=== PATIENT | male | born 2000 | race Caucasian/White ===

== ENCOUNTER 2021-12-20 15:09 | Emergency (ER) | payer MEDICAID ==
[~2021-12-20] VITALS: Ht 160 cm; Wt 70.0 kg
[2021-12-20] MEDS ORDERED: SODIUM CHLORIDE 0.9% 1,000 ML IV ONE (15:30)
[2021-12-20 15:54] LABS: BASOPHILS % 0.4 % (0.0-2.0); EOSINOPHILS % 0.2 % (0.0-5.0); HEMATOCRIT. 48.4 % (42.0-52.0); HEMOGLOBIN. 16.9 g/dL (14.0-18.0); MEAN CORPUSCULAR HEMOGLOBIN 30.7 pg (28.0-32.0); MEAN CORPUSCULAR VOLUME 87.8 fL (80.0-94.0); MEAN PLATELET VOLUME 8.5 fl (7.4-10.4); MONOCYTES % 6.6 % (2.0-8.0); NEUTROPHILS % 61.8 % (40.0-76.0); PLATELET 237 x1000/uL (130-400); RED BLOOD CELL COUNT 5.51 mill/uL (4.7-6.1); RED CELL DISTRIBUTION WIDTH 13.9 % (11.6-14.6)
[2021-12-20 16:05] LABS: CHLORIDE 105 mEq/L (98-107)
[2021-12-20 16:41] LABS: T4 FREE 1.03 ng/dL (0.76-1.46)
[2021-12-20 16:56] LABS: ETHANOL BLOOD 88 mg/dL; PHOSPHORUS 3.3 mg/dL (2.5-4.9)
[2021-12-20 17:09] LABS: CLARITY URINE CLEAR (CLEAR); COLOR URINE YELLOW (YELLOW); KETONES URINE TRACE (NEGATIVE); LEUKOCYTE ESTERASE URINE NEGATIVE (NEGATIVE); NITRITE URINE NEGATIVE (NEGATIVE); OCCULT BLOOD URINE NEGATIVE (NEGATIVE); PROTEIN URINE TRACE (NEGATIVE); SPECIFIC GRAVITY URINE 1.033 (1.005-1.030); UROBILINOGEN URINE 0.2 E.U./dL (0.2-1.0)
[2021-12-20] MEDS ORDERED: MAGNESIUM OXIDE 400MG TABLET PO SCH (17:15)
[2021-12-20] MEDS ORDERED: POTASSIUM CHLORIDE 10MEQ TABLET SR PO SCH (17:15)
[2021-12-20 17:28] LABS: *AMPHETAMINES SCREEN URINE NEGATIVE (NEGATIVE); *BARBITURATES SCREEN URINE NEGATIVE (NEGATIVE); *BENZODIAZEPINES SCREEN URINE NEGATIVE (NEGATIVE); *COCAINE SCREEN URINE NEGATIVE (NEGATIVE); CANNABINOID URINE SCREEN PRESUMTIVE POSITIVE (NEGATIVE); METHADONE URINE SCREEN NEGATIVE (NEGATIVE); OPIATES URINE SCREEN NEGATIVE (NEGATIVE); PHENCYCLIDINE URINE SCREEN NEGATIVE (NEGATIVE)
[2021-12-20 18:12] VITALS: BP 127/71
== END 2021-12-20 18:14 | disposition home or self-care (01) ==
LOC: ER 15:09
DX: F10.10 Alcohol abuse, uncomplicated (principal); R00.2 Palpitations; F12.10 Cannabis abuse, uncomplicated; E11.9 Type 2 diabetes mellitus without complications; Y90.4 Blood alcohol level of 80-99 mg/100 ml
CPT/HCPCS: 36415; 71045; 80053; 80305; 80320; 81003; 83690; 83735; 84100; 84439; 84443; 85025; 93005; 96360; 99285; J7030; G0480

== ENCOUNTER 2021-12-29 18:55 | Emergency (ER) | payer MEDICAID ==
[~2021-12-29] VITALS: Ht 170.2 cm; Wt 68.0 kg
[2021-12-29] MEDS ORDERED: LORAZEPAM 2MG/ML CPJ IV ONE (20:15)
[2021-12-29] MEDS ORDERED: SODIUM CHLORIDE 0.9% 1,000 ML IV ONE (20:15)
[2021-12-29 21:44] LABS: BASOPHILS % 0.3 % (0.0-2.0); EOSINOPHILS % 0.2 % (0.0-5.0); LYMPHOCYTES % 15.9 % (20.0-50.0); MEAN CORPUSCULAR HEMOGLOBIN 31.1 pg (28.0-32.0); MEAN CORPUSCULAR VOLUME 87.1 fL (80.0-94.0); MEAN PLATELET VOLUME 8.9 fl (7.4-10.4); MONOCYTES % 7.5 % (2.0-8.0); NEUTROPHILS % 76.1 % (40.0-76.0); PLATELET 211 x1000/uL (130-400); RED BLOOD CELL COUNT 5.16 mill/uL (4.7-6.1); RED CELL DISTRIBUTION WIDTH 13.4 % (11.6-14.6)
[2021-12-29 21:48] LABS: CHLORIDE 103 mEq/L (98-107)
[2021-12-29 23:00] VITALS: BP 137/89
== END 2021-12-29 23:13 | disposition home or self-care (01) ==
LOC: ER 18:55
DX: R00.2 Palpitations (principal); E11.9 Type 2 diabetes mellitus without complications; F41.9 Anxiety disorder, unspecified
CPT/HCPCS: 36415; 71045; 80053; 84484; 85025; 93005; 96361; 96374; 99285; J2060; J7030; Z7610

== ENCOUNTER 2022-05-25 00:44 | Emergency (ER) | payer MEDICAID ==
[~2022-05-25] VITALS: Ht 167.6 cm; Wt 85.0 kg
[2022-05-25 00:52] VITALS: BP 149/90
== END 2022-05-25 05:15 | disposition home or self-care (01) ==
LOC: ER 00:44
DX: R00.2 Palpitations (principal); E11.9 Type 2 diabetes mellitus without complications; F12.10 Cannabis abuse, uncomplicated
CPT/HCPCS: 93005; 99283

== ENCOUNTER 2022-08-07 21:26 | Emergency (ER) | payer MEDICAID ==
[~2022-08-07] VITALS: Ht 170.2 cm; Wt 78.0 kg
[2022-08-07 21:34] VITALS: BP 164/95; PULSE 104; RESP 22; TEMP 98.2; O2SAT 100
[2022-08-07 21:55] LABS: BASOPHILS % 0.4 % (0.0-2.0); EOSINOPHILS % 0.3 % (0.0-5.0); HEMATOCRIT. 50.4 % (42.0-52.0); HEMOGLOBIN. 17.8 g/dL (14.0-18.0); LYMPHOCYTES % 36.9 % (20.0-50.0); MEAN CORPUSCULAR HEMOGLOBIN 31.3 pg (28.0-32.0); MEAN CORPUSCULAR VOLUME 88.5 fL (80.0-94.0); MEAN PLATELET VOLUME 8.2 fl (7.4-10.4); NEUTROPHILS % 59.4 % (40.0-76.0); PLATELET 279 x1000/uL (130-400); RED BLOOD CELL COUNT 5.69 mill/uL (4.7-6.1)
[2022-08-07 21:58] LABS: CHLORIDE 109 mEq/L (98-107)
[2022-08-07 22:11] LABS: ETHANOL BLOOD 317 mg/dL (-10)
== END 2022-08-08 01:45 | disposition left against medical advice (07) ==
LOC: ER 21:26
DX: Z53.21 Procedure and treatment not carried out due to patient leaving prior to being seen by health care provider (principal)
CPT/HCPCS: 36415; 80053; 80320; 85025; 99281; G0480

== ENCOUNTER 2022-12-07 00:50 | Emergency (ER) | payer MEDICAID ==
[~2022-12-07] VITALS: Ht 170.2 cm; Wt 77.0 kg
[2022-12-07 00:52] VITALS: BP 151/94; PULSE 84; RESP 18; TEMP 98.3; O2SAT 100
[2022-12-07] MEDS ORDERED: ONDANSETRON HCL 4MG/2ML INJ IV STA (00:52)
[2022-12-07] MEDS ORDERED: MAGNESIUM/ALUMINUM HYDROXIDE/SIMETHICONE 30ML UDC PO STA (00:52)
[2022-12-07] MEDS ORDERED: PANTOPRAZOLE SODIUM 40 MG/VIAL IV ONE (01:00)
[2022-12-07 01:06] LABS: BASOPHILS % 0.3 % (0.0-2.0); EOSINOPHILS % 1.3 % (0.0-5.0); HEMATOCRIT. 47.4 % (42.0-52.0); HEMOGLOBIN. 16.5 g/dL (14.0-18.0); LYMPHOCYTES % 40.6 % (20.0-50.0); MEAN CORPUSCULAR HEMOGLOBIN 30.3 pg (28.0-32.0); MEAN CORPUSCULAR HGB CONC 34.7 g/dL (31.0-37.0); MEAN CORPUSCULAR VOLUME 87.2 fL (80.0-94.0); MEAN PLATELET VOLUME 8.2 fl (7.4-10.4); MONOCYTES % 5.3 % (2.0-8.0); NEUTROPHILS % 52.5 % (40.0-76.0); PLATELET 224 x1000/uL (130-400); RED BLOOD CELL COUNT 5.43 mill/uL (4.7-6.1); WHITE BLOOD COUNT 5.3 x1000/uL (4.5-11.0)
[2022-12-07 01:12] LABS: DIFFERENTIAL COMMENT 1
[2022-12-07 01:17] LABS: CHLORIDE 107 mEq/L (98-107); INDEX HEMOLYSI 1 (1-3); INDEX ICTERIC 1 (1-4); INDEX LIPEMIC 1 (1-3); POTASSIUM 3.2 mEq/L (3.5-5.1); SODIUM 141 mEq/L (136-145)
[2022-12-07 01:24] LABS: ALANINE AMINOTRANSFERASE 32 IU/L (13-61); ASPARTATE AMINOTRANSFERASE 16 IU/L (15-37); BILIRUBIN TOTAL 0.6 mg/dL (0.1-1.0); CALCIUM 8.9 mg/dL (8.5-10.1); CARBON DIOXIDE 24 mEq/L (21-32); CREATININE 0.5 mg/dL (0.6-1.3); ETHANOL BLOOD 252 mg/dL (<10); GLUCOSE 263 mg/dL (70-105); PROTEIN TOTAL 7.8 g/dL (6.0-8.3); UREA NITROGEN BLOOD 10 mg/dL (7-21)
[2022-12-07 01:49] LABS: INR 0.9; PROTHROMBIN TIME 9.7 sec (9.6-11.0)
[2022-12-07] MEDS ORDERED: PROT40 MT (02:29)
[2022-12-07] MEDS ORDERED: ONDA4TAB50 MT (02:29)
== END 2022-12-07 05:55 | disposition home or self-care (01) ==
LOC: ER 00:50
DX: K29.70 Gastritis, unspecified, without bleeding (principal); E11.9 Type 2 diabetes mellitus without complications; F12.10 Cannabis abuse, uncomplicated
CPT/HCPCS: 80053; 80320; 83690; 85025; 85610; 36415; 76705; 96374; 96375; 99285; J2405; C9113; Z7610 ×2; G0480

== ENCOUNTER 2023-01-28 01:43 | Emergency (ER) | payer MEDICAID ==
[~2023-01-28] VITALS: Ht 160 cm; Wt 77.0 kg
[~2023-01-28 01:43] MED LIST: ONDA4TAB50 MT; PROT40 MT
[2023-01-28 01:50] VITALS: BP 139/92; PULSE 85; RESP 18; TEMP 98.4; O2SAT 98
== END 2023-01-28 07:02 | disposition left against medical advice (07) ==
LOC: ER 01:43
DX: F41.9 Anxiety disorder, unspecified (principal); Z53.21 Procedure and treatment not carried out due to patient leaving prior to being seen by health care provider
CPT/HCPCS: 99281

== ENCOUNTER 2024-12-20 09:52 | Emergency (ER) | payer MEDICAID ==
[~2024-12-20] VITALS: Ht 160 cm; Wt 75.0 kg
[2024-12-20 10:13] VITALS: TEMP 36.7; O2SAT 100
[2024-12-20 12:46] LABS: BASOPHILS % 0.2 % (0.0-2.0); EOSINOPHILS % 0.1 % (0.0-5.0); HEMATOCRIT. 51.4 % (42.0-52.0); HEMOGLOBIN. 17.3 g/dL (14.0-18.0); LYMPHOCYTES % 9.6 % (20.0-50.0); MEAN PLATELET VOLUME 8.8 fl (7.4-10.4); MONOCYTES % 7.6 % (2.0-8.0); NEUTROPHILS % 82.5 % (40.0-76.0); PLATELET 216 x1000/uL (130-400); RED BLOOD CELL COUNT 5.81 mill/uL (4.7-6.1); RED CELL DISTRIBUTION WIDTH 13.4 % (11.6-14.6)
[2024-12-20 13:02] LABS: CREATININE 0.9 mg/dL (0.6-1.3); TROPONIN I HIGH SENSITIVITY < 4 ng/L (3.0-53); UREA NITROGEN BLOOD 8 mg/dL (9-23)
[2024-12-20] MEDS ORDERED: FAMO40TA70 MT (13:56)
[2024-12-20] MEDS: FAMOTIDINE 20MG TABLET PO ONE (14:09)
[2024-12-20 14:10] VITALS: BP 125/70; PULSE 89; RESP 14; O2SAT 100
== END 2024-12-20 14:21 | disposition home or self-care (01) ==
LOC: ER 10:32
DX: K21.9 Gastro-esophageal reflux disease without esophagitis (principal); E10.9 Type 1 diabetes mellitus without complications; F12.90 Cannabis use, unspecified, uncomplicated; F41.9 Anxiety disorder, unspecified; Z79.899 Other long term (current) drug therapy
CPT/HCPCS: 36415; 71045; 80048; 82962; 84484; 85025; 99284